=== PATIENT | male | born 1940 | race Caucasian/White ===

== ENCOUNTER 2018-11-24 22:32 | Inpatient (IN) | payer OTHER ==
[~2018-11-24] VITALS: Ht 165.1 cm; Wt 68.1 kg
--- NOTE | 2018-11-24 22:50 | NUR ---
DR HODGSON AT BEDSIDE
[2018-11-24 23:21] LABS: CALCIUM 9.6 mg/dL (8.5-10.1); CHLORIDE SERUM 102 mmol/L (98-107); CREATININE SERUM 1.5 mg/dL (0.7-1.3); GLUCOSE SERUM 84 mg/dL (74-106); SODIUM SERUM 137 mmol/L (136-145)
[2018-11-24 23:22] LABS: BASOPHIL % 0.4 % (0-2); PLATELET COUNT 257 x10^3mcL (130-400); RED CELL DISTRIBUTION WIDTH 13.8 % (11.5-14.5)
--- NOTE | 2018-11-24 23:23 | NUR ---
PT TAKEN TO CT
[2018-11-24 23:27] LABS: ALBUMIN 3.8 g/dL (3.4-5.0); ALKALINE PHOSPHATASE 51 U/L (46-116); ALT/SGPT 41 U/L (16-63); AST/SGOT 23 U/L (15-37); BILIRUBIN TOTAL 0.29 mg/dL (0.20-1.00); LIPASE 170 IU/L (73-393); TOTAL PROTEIN, SERUM 7.5 g/dL (6.4-8.2)
--- NOTE | 2018-11-24 23:31 | NUR ---
PT RESTING IN A POSITION OF COMFORT AT THIS TIME. AOX4, RESP EVEN AND UNLABORED, NO ACUTE DISTRESS NOTED. PT C/O 9/[address] PAIN AT THIS TIME[address] HODGSON AWARE OF RECENT VITAL SIGNS AND PAIN LEVEL.
[2018-11-25] MEDS ORDERED: LISINOPRIL40 MG PO (00:19)
[2018-11-25] MEDS ORDERED: HYDROCHLOROTHIA25 MG PO (00:20)
[2018-11-25] MEDS ORDERED: CARVEDILOL12.5 M1 PO (00:41)
[2018-11-25] MEDS ORDERED: METFORMIN HCL1000 MG PO (00:41)
[2018-11-25] MEDS ORDERED: DICLOFENAC SODI75 MG PO (00:41)
[2018-11-25] MEDS ORDERED: SEROQUEL50 M1 PO (00:43)
[2018-11-25] MEDS ORDERED: BUSPIRONE HCL15 MG PO (00:43)
[2018-11-25] MEDS ORDERED: LEVOTHYROXIN0.125 M2 PO (00:44)
[2018-11-25] MEDS ORDERED: ALBUTEROL SULFAT3 ML IH (00:44)
[2018-11-25] MEDS ORDERED: HYDROXYZINE HYD25 MG PO (00:46)
[2018-11-25] MEDS ORDERED: ZOLOFT50 MG PO (00:47)
[2018-11-25 01:00] LABS: CHOLESTEROL/HDL RATIO 3.9
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
--- NOTE | 2018-11-25 01:05 | NUR ---
RECEIVED PT FROM ED VIA 3scale, CAME IN DUE TO CHEST PAIN AND URINARY FREQUENCY. AAOX4. DENIES HEADACHE/DIZZINESS. NO SOB NOTED, LUNG SOUNDS CTA. DENIES CHEST PAIN/PRESSURE, SR ON THE MONITOR. DENIES ABDOMINAL DISCOMFORT. BOWEL SOUNDS ACTIVE. LAST BM=11/24/18. C/O FREQUENT URINATION. SKIN IS INTACT. IV SITE ON THE LAC IS PATENT AND INTACT. SIDE RAILS UPX2. CALL LIGHT ON REACH. PRIMARY NURSE SABA AT BEDSIDE FOR CONTINUITY OF CARE
[2018-11-25 01:09] VITALS: BP 149/80
[2018-11-25 01:13] VITALS: Ht 165.1 cm; Wt 68.1 kg
[2018-11-25 06:04] VITALS: BP 150/87
[2018-11-25 06:05] LABS: microscopic required? NO
--- NOTE | 2018-11-25 06:17 | NUR ---
PT RESTING COMFORTABLY IN BED. NO ACUTE DISTRESS NOTED THROUGHOUT THE SHIFT. EVEN AND UNLABORED RESPIRATIONS NOTED ON RA. ON TELE #18 READING SR 60.IVL PATENT AND INTACT. ALL NEEDS TENDED TO AND MET. ALL SCHEDULED MEDICATIONS GIVEN. BED IN LOWEST POSITION. SIDE RAILS UP X2. CALL LIGHT WITHIN REACH. WILL ENDORSE TO ONCOMING SHIFT.
[2018-11-25 07:06] LABS: BASOPHIL % 0.3 % (0-2); PLATELET COUNT 248 x10^3mcL (130-400); RED CELL DISTRIBUTION WIDTH 13.6 % (11.5-14.5)
[2018-11-25 07:10] LABS: UA SPECIFIC GRAVITY <=1.005 (1.005-1.035); urine erythrocyte NEGATIVE (NEGATIVE)
--- NOTE | 2018-11-25 07:10 | NUR ---
RECIEVED PT RESTING COMFORTABLY IN BED. DENIES ANY PAIN OR RR DISTRESS AT THIS TIME.A/O X4 NO C/O [place] OR DIZZINESS. TELE MONITOR 18 CONNECTED TO PT. LUNGS CTA, RR EAUAL AND UNLABORED. BS ACTIVE X4 SALINE LOCK TO LAC 20 GUAGE INTACT AND PATENT WITH NO REDNESS. SAFETY PRECAUTIONS IN PLACE. CALL LIGHT WITHIN REACH. WILL MONITOR.
[2018-11-25 07:30] LABS: CALCIUM 9.4 mg/dL (8.5-10.1); CARBON DIOXIDE 33.6 mmol/L (21-32); CHLORIDE SERUM 100 mmol/L (98-107); CREATININE SERUM 1.3 mg/dL (0.7-1.3); GLUCOSE SERUM 86 mg/dL (74-106); SODIUM SERUM 138 mmol/L (136-145)
[2018-11-25 07:32] LABS: T3 TOTAL 0.67 ng/mL
[2018-11-25 07:41] LABS: FREE T4 0.97 ng/dL (0.76-1.46); FREE THYROXINE INDEX 2.3 ug/dL (1.4-4.5); T4(THYROXINE) 6.3 ug/dL (4.7-13.3)
--- NOTE | 2018-11-25 09:30 | NUR ---
PT RESTING COMFORTABLY IN BED. DENIES ANY PAIN OR DISTRESS AT THIS TIME. DENIES JADEN CP OR PRESSURE. SAFETY PRECAUTIONS IN PLACE. CALL LIGHT WITHIN REACH. WILL MONITOR.
[2018-11-25 09:33] VITALS: BP 164/76
--- NOTE | 2018-11-25 12:00 | NUR ---
PT STABLE. RESTING IN BED WITH AT BEDSIDE. NO C/O PAIN OR DISTRESS. SAAFETY PRECAUTIONS IN PLACE. CALL LIGHT WITHIN REACH. WILL MONITOR.
[2018-11-25 12:56] VITALS: BP 137/89
--- NOTE | 2018-11-25 15:30 | NUR ---
PT RESTING IN BED WITH AT BEDSIDE. CALM WITH CARE AND DENIES ANY CP OR PRESSURE. VS WNL. SAFETY PRECAUTIONS IN PLACE. CALL LIGHT WITHIN REACH. WILL MONITOR.
[2018-11-25 17:30] VITALS: BP 183/97
--- NOTE | 2018-11-25 19:11 | NUR ---
[id number], WENT TO TAKE PATIENTS V/S FOR DISCHARGE AND NOTED LEFT ARM B/P OF 203/115, MAP 124, HR 71 AND RIGHT ARM BP OF 187/107, MAP 124, HR 70. NOTIFIED CHARGE NURSE AND CALLED DR AGUAYO AND NOTIFIED HIM OF PATIENTS CONDITION. NEW ORDER GIVEN BY DR AGUAYO OF HYDRALAZINE 10MG IV ONCE AT 1899. ORDER CARRIED OUT. WILL MONITOR BP AGIN BEFORE I LEAVE.
--- NOTE | 2018-11-25 19:52 | NUR ---
BP NOW AT 195/89, HR 76, SAT 96%. NOTIFIED NIGHT NURSE. ENDORSED CARE TO NIGHT NURSE. PT HAS NO S/S OF DISTRESS AT THIS TIME.
--- NOTE | 2018-11-25 20:00 | NUR ---
Awake and verbally responsive. No respiratory distress noted on room air. Denies pain at this time. Denies n/v. Family visiting. Will cont.to monitor. Call light within reach.
[2018-11-25 21:19] VITALS: BP 144/76
--- NOTE | 2018-11-26 03:57 | NUR ---
Afebrile. No significant change in condition noted. Denies chest pain. In no apparent distress.
[2018-11-26 06:07] VITALS: BP 132/75
--- NOTE | 2018-11-26 07:10 | NUR ---
RECIEVED PT RESTING COMFORTABLY IN BED. A/O X4, DENIES ANY CP, PRESSURE, OR SOB. TELE MONITOR #18 CONNECTED TO PT. LUNGS CTA ON RA. IV TO LAC INTACT AND PATENT WITH NO REDNESS NOTED. SAFETY PRECAUTIONS IN PLACE. CALL LIGHT WITHIN REACH. WILL MONITOR.
[2018-11-26 08:05] VITALS: BP 160/87
[2018-11-26 10:19] VITALS: BP 160/87
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
[2018-11-26 11:14] VITALS: BP 146/81
--- NOTE | 2018-11-26 12:37 | NUR ---
PT STABLE TO D/C PER ORDER. LEFT IN WHEELCHAIR ACCOMPANIED BY FAMILY MEMBERS AND FITNESS ATTENDANT. IV REMOVED WITH CATHETER INTACT.NO REDNESS OR INFLAMMATION NOTED TO SITE. VS WNL AND DENIES ANY CP, PRESSURE, OR SOB. ID BANDS REMOVED FROM PT BEFORE, D/C INSTRUCTIONS AND EDUCATION GIVEN. DC FORMS SIGHNED BY PT.
== END 2018-11-26 12:40 | disposition home or self-care (01) | DRG 205 ==
LOC: ED 22:32 → DU 11-25 00:12
PROVIDERS: Emergency Medicine; ADMIT General Practice
DX: M94.0 Chondrocostal junction syndrome [Tietze] (principal); N17.0 Acute kidney failure with tubular necrosis; I16.0 Hypertensive urgency; I10 Essential (primary) hypertension; E11.9 Type 2 diabetes mellitus without complications; F32.9 Major depressive disorder, single episode, unspecified; Z68.26 Body mass index [BMI] 26.0-26.9, adult; Z79.84 Long term (current) use of oral hypoglycemic drugs
CPT/HCPCS: 84439; J0360; J2270; J2405; J3490; Q0092

== ENCOUNTER 2019-05-16 16:52 | Emergency (ER) | payer OTHER ==
[~2019-05-16] VITALS: Ht 165.1 cm; Wt 72.1 kg
[~2019-05-16 16:52] MED LIST: ALBUTEROL SULFAT3 ML IH; BUSPIRONE HCL15 MG PO; CARVEDILOL12.5 M1 PO; DICLOFENAC SODI75 MG PO; HYDROCHLOROTHIA25 MG PO; HYDROXYZINE HYD25 MG PO; LEVOTHYROXIN0.125 M2 PO; LISINOPRIL40 MG PO; METFORMIN HCL1000 MG PO; SEROQUEL50 M1 PO; ZOLOFT50 MG PO
[2019-05-16 16:58] VITALS: Ht 165.1 cm; Wt 72.1 kg
[2019-05-16 17:55] LABS: BASOPHIL % 0.3 % (0-2); PLATELET COUNT 251 x10^3mcL (130-400); RED CELL DISTRIBUTION WIDTH 12.9 % (11.5-14.5)
[2019-05-16 18:01] LABS: CALCIUM 8.4 mg/dL (8.5-10.1); CARBON DIOXIDE 27.6 mmol/L (21-32); CHLORIDE SERUM 98 mmol/L (98-107); CREATININE SERUM 1.2 mg/dL (0.7-1.3); GLUCOSE SERUM 102 mg/dL (74-106); POTASSIUM SERUM 3.7 mmol/L (3.5-5.1); SODIUM SERUM 135 mmol/L (136-145)
[2019-05-16 18:06] LABS: ALBUMIN 3.8 g/dL (3.4-5.0); ALKALINE PHOSPHATASE 54 U/L (46-116); ALT/SGPT 22 U/L (16-63); AST/SGOT 14 U/L (15-37); BILIRUBIN TOTAL 0.5 mg/dL (0.20-1.00); TOTAL PROTEIN, SERUM 7.6 g/dL (6.4-8.2)
[2019-05-16 19:04] VITALS: BP 152/84
== END 2019-05-16 19:04 | disposition home or self-care (01) ==
LOC: ED 16:52
PROVIDERS: Emergency Medicine
DX: G44.209 Tension-type headache, unspecified, not intractable (principal); R00.2 Palpitations; I10 Essential (primary) hypertension; E11.9 Type 2 diabetes mellitus without complications; F41.9 Anxiety disorder, unspecified; M19.90 Unspecified osteoarthritis, unspecified site
CPT/HCPCS: 36415; J0780; J1885